=== PATIENT | female | born 1945 | race Caucasian/White ===

== ENCOUNTER → 2018-04-15 | Outpatient (CLI) | payer MEDICARE, BC ==
[~2018-04-15] MED LIST: LOSA50TA7 PO
[2018-04-15 16:02] LABS: BASOPHILS # (AUTO) 0.08 x10^3/uL (0-0.1); BASOPHILS % (AUTO) 1 % (0-1); EOSINOPHILS # (AUTO) 0.15 x10^3/uL (0-0.4); EOSINOPHILS % (AUTO) 2 % (1-7); LYMPHOCYTES # (AUTO) 1.83 x10^3/uL (1-3.4); LYMPHOCYTES % (AUTO) 22 % (22-44); MD NO; MEAN CORPUSCULAR HEMOGLOBIN 31.9 pg (27.0-34.8); MEAN CORPUSCULAR HGB CONC 33.7 g/dL (32.4-35.8); MEAN CORPUSCULAR VOLUME 94.8 fL (80-100); MEAN PLATELET VOLUME 7.3 fL (7.4-10.4); MONOCYTES # (AUTO) 0.87 x10^3/uL (0.2-0.8); MONOCYTES % (AUTO) 11 % (2-9); NEUTROPHILS # (AUTO) 5.39 x10^3/uL (1.8-6.8); NEUTROPHILS % (AUTO) 65 % (42-75); PLATELET COUNT 222 x10^3/uL (130-400); RED BLOOD COUNT 4.16 x10^6/uL (3.82-5.3)
[2018-04-15 16:05] LABS: INTERNATIONAL NORMALIZED RATIO 0.89 (0.93-1.1); PROTHROMBIN TIME 9.3 Seconds (9.6-11.5)
== END | disposition home or self-care (01) ==
LOC: STAR 14:54
PROVIDERS: ATTEND Internal Medicine Critical Care Medicine
DX: Z01.818 Encounter for other preprocedural examination (principal); R91.8 Other nonspecific abnormal finding of lung field; Z88.0 Allergy status to penicillin
CPT/HCPCS: 36415; 85025; 85610; 85730

== ENCOUNTER 2018-04-21 07:58 | Day surgery (SDC) | payer MEDICARE, BC ==
[~2018-04-21] VITALS: Ht 165.1 cm; Wt 54.4 kg
[2018-04-21] MEDS ORDERED: LIDOCAINE-MPF 2% ,5ML ONE (08:00)
[2018-04-21 09:19] VITALS: BP 147/69
[2018-04-21] MEDS ORDERED: FENTANYL PF 100 MCG/2ML ONE ×2 (09:30)
[2018-04-21] MEDS ORDERED: MIDAZOLAM 1 MG/ML, 5ML ONE (09:30)
[2018-04-21 10:01] VITALS: BP 147/69
[2018-04-21 10:07] VITALS: BP 147/69
== END 2018-04-21 12:15 | disposition home or self-care (01) ==
LOC: OUT 07:58
PROVIDERS: ATTEND Internal Medicine Critical Care Medicine
DX: J98.4 Other disorders of lung (principal); Z87.891 Personal history of nicotine dependence; Z88.0 Allergy status to penicillin
CPT/HCPCS: 31622; 94640; 99152; 99153; J2250; J3010; J3490